=== PATIENT | male | born 1970 | race African-American/Black ===

== ENCOUNTER 2022-05-17 18:36 | Inpatient (IN) | payer MEDICAID, OTHER ==
[~2022-05-17] VITALS: Ht 188 cm; Wt 70.0 kg
[2022-05-17 20:09] LABS: Basophils # (auto) 0.1 10 ^3/uL (0-0.2); Basophils % (auto) 2.1 % (0.0-2.0); Eosinophils # (auto) 0 10 ^3/uL (0-0.8); Eosinophils % (auto) 0.5 % (0.0-7.0); Hematocrit 33.7 % (41.0-53.0); Hemoglobin 11.3 g/dL (13.5-17.5); Lymphocytes # (auto) 1.5 10 ^3/uL (0.4-5.4); Lymphocytes % (auto) 46.6 % (10.0-50.0); Mean Corpuscular Hemoglobin 27.6 pg (28.0-32.0); Mean Corpuscular Hgb Conc. 33.5 g/dL (32.0-36.0); Mean Corpuscular Volume 82.3 fL (80.0-100.0); Monocytes # (auto) 0.6 10 ^3/uL (0-1.3); Monocytes % (auto) 17.8 % (0.0-12.0); Neutrophils # (auto) 1.1 10 ^3/uL (1.6-8.6); Nucleated Red Blood Cells % 0.6 %; Red Blood Cells 4.09 10^6/uL (4.5-5.90); Red Cell Distribution Width 19.7 % (11.8-14.3); White Blood Cell 3.2 10^3/uL (4.4-10.8)
[2022-05-17 20:12] LABS: Albumin 1.9 g/dL (3.4-5.0); Calcium 8.1 mg/dL (8.5-10.1); Potassium 4.1 mmol/L (3.5-5.1)
[2022-05-17 20:17] LABS: BUN/Creatinine Ratio 21.9; Bilirubin, Total 1.8 mg/dL (0.2-1.0); Total Protein 7.2 g/dL (6.4-8.2)
[2022-05-17] MEDS ORDERED: ONDANSETRON HCL 4 MG/2 ML VIAL IV ONE (22:30)
[2022-05-17] MEDS ORDERED: HYDROmorphone HCL 2 MG/ML VL/or syr IV ONE (22:30)
[2022-05-17] MEDS ORDERED: ONDANSETRON HCL 4 MG/2 ML VIAL ONE (22:33)
[2022-05-18] MEDS ORDERED: ONDANSETRON HCL 4 MG/2 ML VIAL IV ONE (02:00)
[2022-05-18] MEDS ORDERED: HYDROmorphone HCL 2 MG/ML VL/or syr IV ONE (02:00)
[2022-05-18] MEDS ORDERED: MORPHINE SULFATE INJ 2 MG/ml SYRG IV PRN ×2 (03:00→21:00)
[2022-05-18] MEDS ORDERED: ACETAMINOPHEN 325 MG TAB PO PRN (03:00)
[2022-05-18] MEDS ORDERED: ONDANSETRON HCL 4 MG/2 ML VIAL IV PRN (03:00)
[2022-05-18] MEDS ORDERED: SODIUM CHLORIDE 0.9% 1,000 ML IV SCH (03:00)
[2022-05-18] MEDS ORDERED: HYDROcodone-ACET 5/325MG TAB PO PRN (03:00)
[2022-05-18] MEDS ORDERED: LORazepam 0.5 MG TAB PO PRN (03:00)
[2022-05-18] MEDS ORDERED: MAALOX PLUS or MAALOX 30 ML PO PRN (03:00)
[2022-05-18] MEDS ORDERED: DOCUSATE SOD 100 MG CAP PO PRN (03:00)
[2022-05-18] MEDS ORDERED: TEMAZEPAM 15 MG CAP PO PRN (03:00)
[2022-05-18 07:22] LABS: BUN/Creatinine Ratio 20.7; Calcium 8.4 mg/dL (8.5-10.1)
[2022-05-18 07:26] LABS: Hematocrit 29.3 % (41.0-53.0); Hemoglobin 9.9 g/dL (13.5-17.5); Mean Corpuscular Hemoglobin 28.2 pg (28.0-32.0); Mean Corpuscular Hgb Conc. 33.9 g/dL (32.0-36.0); Mean Corpuscular Volume 83.1 fL (80.0-100.0); Red Blood Cells 3.53 10^6/uL (4.5-5.90); Red Cell Distribution Width 19.6 % (11.8-14.3); White Blood Cell 3.3 10^3/uL (4.4-10.8)
[2022-05-18 07:41] LABS: Basophils % (manual) 0 (0.0-2.0); Blast Cells 0; Metamyelocytes % 0; Myelocytes % 0; Promyelocytes % 0; Reactive Lymphocytes 0
[2022-05-18 10:49] LABS: Band Neutrophils % (manual) 6; Eosinophils % (manual) 3 (0-7); Lymphocytes % (manual) 45 (10.0-50.0); Monocytes % (manual) 24 (0-12)
[2022-05-18 11:42] LABS: Urine Bacteria NONE SEEN /hpf (None Seen); Urine Blood TRACE /uL (Negative); Urine Mucus FEW (None Seen); Urine Specific Gravity 1.041 (1.001-1.035); Urine WBC 5 /hpf (0 - 3)
[2022-05-18] MEDS ORDERED: LACTULOSE 20Gm/30ML SOLN PO PRN (14:45)
[2022-05-18] MEDS: HYDROcodone-ACET 10/325MG TAB PO PRN (15:32)
[2022-05-18] MEDS: D5W/SOD CHLO 0.9% 1,000 ML IV SCH ×2 (18:07→22:45)
[2022-05-18] MEDS ORDERED: METOPROLOL TARTRATE 1MG/1ML-5ML VIAL IV ONE (21:45)
[2022-05-19] MEDS ORDERED: METOPROLOL SUCCINATE XL 50 MG TAB PO SCH
[2022-05-19] MEDS: HYDROcodone-ACET 10/325MG TAB PO PRN ×4 (00:14→17:34)
[2022-05-19] MEDS: D5W/SOD CHLO 0.9% 1,000 ML IV SCH ×2 (08:24→19:00)
[2022-05-19] MEDS ORDERED: cefTRIAXone 1GM/50ML D5W 50 ML IV ONE (09:45)
[2022-05-19] MEDS ORDERED: IOHEXOL 350 MG/ML 100ML IJ ONE (10:11)
[2022-05-19] MEDS ORDERED: dilTIAZem 25 MG/5 ML VIAL IV ONE (10:15)
[2022-05-19 10:39] LABS: Hematocrit 34.2 % (41.0-53.0); Hemoglobin 11.4 g/dL (13.5-17.5); Mean Corpuscular Hemoglobin 27.1 pg (28.0-32.0); Mean Corpuscular Hgb Conc. 33.3 g/dL (32.0-36.0); Mean Corpuscular Volume 81.3 fL (80.0-100.0); Red Blood Cells 4.21 10^6/uL (4.5-5.90)
[2022-05-19 10:43] LABS: Basophils % (manual) 0 (0.0-2.0); Blast Cells 0; Metamyelocytes % 0; Myelocytes % 0; Promyelocytes % 0; Reactive Lymphocytes 0
[2022-05-19 10:44] LABS: BUN/Creatinine Ratio 23.6; Calcium 8.9 mg/dL (8.5-10.1); Magnesium 2.2 mg/dL (1.6-2.6); Potassium 3.6 mmol/L (3.5-5.1)
[2022-05-19 10:57] LABS: INR 1.15 (0.9-1.15)
[2022-05-19] MEDS: dilTIAZem 125mg/125ml BAG KIT 125 ML IV SCH (13:28)
[2022-05-19 14:04] LABS: Band Neutrophils % (manual) 8; Eosinophils % (manual) 2 (0-7); Lymphocytes % (manual) 38 (10.0-50.0); Monocytes % (manual) 19 (0-12)
[2022-05-20] MEDS: HYDROcodone-ACET 10/325MG TAB PO PRN ×3 (03:23→18:09)
[2022-05-20] MEDS: D5W/SOD CHLO 0.9% 1,000 ML IV SCH ×4 (04:52→22:16)
[2022-05-20] MEDS: cefTRIAXone 1GM/50ML D5W 50 ML IV SCH (09:00)
[2022-05-20] MEDS ORDERED: dilTIAZem HCL 180MG ER CAP PO SCH (10:00)
[2022-05-20] MEDS: dilTIAZem HCL 180MG ER CAP PO SCH (10:01)
[2022-05-20] MEDS: dilTIAZem 125mg/125ml BAG KIT 125 ML IV SCH (12:45)
[2022-05-21] MEDS: HYDROcodone-ACET 10/325MG TAB PO PRN ×3 (00:57→18:33)
[2022-05-21 05:00] VITALS: BP 112/72
[2022-05-21] MEDS: D5W/SOD CHLO 0.9% 1,000 ML IV SCH (06:35)
[2022-05-21] MEDS: cefTRIAXone 1GM/50ML D5W 50 ML IV SCH (09:06)
[2022-05-21] MEDS: dilTIAZem HCL 180MG ER CAP PO SCH (09:06)
[2022-05-21 09:10] VITALS: BP 99/58
[2022-05-21 14:07] VITALS: BP 98/64
[2022-05-21 17:09] VITALS: BP 103/69
[2022-05-21 22:00] VITALS: BP 107/70
[2022-05-22] MEDS: HYDROcodone-ACET 10/325MG TAB PO PRN ×2 (00:34→11:25)
[2022-05-22 05:00] VITALS: BP 107/72
[2022-05-22] MEDS: cefTRIAXone 1GM/50ML D5W 50 ML IV SCH (09:00)
[2022-05-22 09:05] VITALS: BP 98/66
[2022-05-22] MEDS: dilTIAZem HCL 180MG ER CAP PO SCH (10:00)
[2022-05-22] MEDS ORDERED: DILT360C17 PO (11:21)
[2022-05-22 14:36] VITALS: BP 100/69
== END 2022-05-22 16:40 | disposition home or self-care (01) | DRG 422 ==
LOC: EDBD 18:36 → ER 18:36 → OVERFLOW 05-18 02:58 → CENTRAL 05-18 23:11 → OVERFLOW 05-18 23:23 → TELE 05-19 13:57 → TELE-WESTW 05-20 23:24
PROVIDERS: ADMIT Hospitalist; ATTEND Family Medicine
DX: E86.0 Dehydration (principal); E43 Unspecified severe protein-calorie malnutrition; C18.9 Malignant neoplasm of colon, unspecified; D70.1 Agranulocytosis secondary to cancer chemotherapy; C78.7 Secondary malignant neoplasm of liver and intrahepatic bile duct; D63.8 Anemia in other chronic diseases classified elsewhere; I95.9 Hypotension, unspecified; D64.81 Anemia due to antineoplastic chemotherapy; Z20.822 Contact with and (suspected) exposure to COVID-19; K59.00 Constipation, unspecified; R55 Syncope and collapse; R00.0 Tachycardia, unspecified; R79.89 Other specified abnormal findings of blood chemistry; T45.1X5A Adverse effect of antineoplastic and immunosuppressive drugs, initial encounter; Z79.899 Other long term (current) drug therapy; Z68.1 Body mass index [BMI] 19.9 or less, adult; Y92.89 Other specified places as the place of occurrence of the external cause; Z85.038 Personal history of other malignant neoplasm of large intestine; Z92.21 Personal history of antineoplastic chemotherapy
CPT/HCPCS: 36415; 70450; 71045; 71275; 74177; 80048; 80053; 81001; 83605; 83690; 83735; 84443; 84484; 85007; 85025; 85027; 85379; 85610; 85730; 87040; 87426; 93005; 93306; 93970; 96374; 96375; 96376; G0378; J0696; J2405